=== PATIENT | female | born 1950 | race Caucasian/White ===

== ENCOUNTER 2022-06-21 13:49 | Outpatient (CLI) | payer MEDICARE ==
--- NOTE | 2022-06-23 11:29 | Mammography Report ---
BILATERAL DIGITAL SCREENING MAMMOGRAM 3D/2D WITH AUGMENTATION: 06/21/2022 CLINICAL: Routine screening. Comparison is made to exam dated: 03/01/2020 mammogram - [facility]. Both breasts are heterogeneously dense, which may obscure small masses (category c / 51-75% glandular tissue). There is an asymmetry in the left breast posterior depth medial region seen on the craniocaudal view only. No other significant masses, calcifications, or other findings are seen in either breast. Implants are present. Densities around the implant on the right and involving lymph nodes, likely ext racapsular silicone material. IMPRESSION: INCOMPLETE: NEEDS ADDITIONAL IMAGING EVALUATION The asymmetry in the left breast is indeterminate. Additional views with possible ultrasound are rec ommended. Based on the Tyrer Cuzick model (a risk assessment model) the patients lifetime risk is 5.4% and her 10 year risk is 3.7%. According to the ACR, ACS, and NCCN guidelines, an annual breast MRI exam hannah g with mammogram is recommended if the patients lifetime risk is 20% or greater. This exam was interpreted at Station ID: [id number]. NOTE: For mammograms, a report in lay terms will be sent to the patient. Approximately 15% of breast malignancies will not be visualized mammographically. In the management of a palpable breast mass, a negative mammogram must not discourage biopsy of a clinically suspicious lesion. Electronically Signed By: Alfonso Gimenez M.D. lc/:06/23/2022 10:54:02 ACR BI-RADS Category 0: Incomplete 3340F PARENCHYMAL PATTERN: (D) - The breast(s) demonstrate(s) heterogeneously dense fibroglandular myesha hammond. BI-RADS CATEGORY: (0) - 0 Mammo and [place] [id number] Immediate follow-up LATERALITY: (B)
== END 2022-06-21 13:50 | disposition home or self-care (01) ==
LOC: DI 13:49
PROVIDERS: ATTEND Nurse Practitioner Family
DX: Z12.31 Encounter for screening mammogram for malignant neoplasm of breast (principal); R92.8 Other abnormal and inconclusive findings on diagnostic imaging of breast

== ENCOUNTER 2022-07-24 12:21 | Outpatient (CLI) | payer MEDICARE, MEDICAID ==
--- NOTE | 2022-07-25 10:37 | Mammography Report ---
UNILATERAL LEFT DIGITAL DIAGNOSTIC MAMMOGRAM 3D/2D WITH AUGMENTATION: 07/24/2022 CLINICAL: Patient returns today to evaluate an asymmetry in the left breast. Comparison is made to exams dated: 06/21/2022 mammogram - [facility] and 03/01/2020 mammogram - [facility]. The left breast is heterogeneously dense, which may obscure small masses (category c / 51-75% glandul ar tissue). There is an asymmetry in the left breast posterior depth medial region seen on the craniocaudal view only. This is not seen in additional views. Left breast implant. No other significant masses or calcifications are seen in the breast. IMPRESSION: BENIGN There is no mammographic evidence of malignancy. The asymmetry in the left breast is consistent with fibroglandular tissue and is benign. A 1 year screening mammogram is recommended. Based on the Tyrer Cuzick model (a risk assessment model) the patients lifetime risk is 5.4% and her 10 year risk is 3.7%. According to the ACR, ACS, and NCCN guidelines, an annual breast MRI exam hannah g with mammogram is recommended if the patients lifetime risk is 20% or greater. This exam was interpreted at Station ID: [id number]. NOTE: For mammograms, a report in lay terms will be sent to the patient. Approximately 15% of breast malignancies will not be visualized mammographically. In the management of a palpable breast mass, a negative mammogram must not discourage biopsy of a clinically suspicious lesion. Electronically Signed By: Sloan Lawton M.D. slc/:07/24/2022 13:00:43 ACR BI-RADS Category 2: Benign Finding(s) 3342F PARENCHYMAL PATTERN: (D) - The breast(s) demonstrate(s) heterogeneously dense fibroglandular myesha hammond. BI-RADS CATEGORY: (2) - 2 Mammogram [id number] 1 year screening LATERALITY: (B)
== END 2022-07-24 12:22 | disposition home or self-care (01) ==
LOC: DI 12:21
PROVIDERS: ATTEND Nurse Practitioner Family
DX: R92.8 Other abnormal and inconclusive findings on diagnostic imaging of breast (principal); Z98.82 Breast implant status

== ENCOUNTER 2023-10-17 14:07 | Outpatient (CLI) | payer MEDICARE, MEDICAID ==
--- NOTE | 2023-10-18 14:33 | Mammography Report ---
BILATERAL DIGITAL SCREENING MAMMOGRAM 3D/2D WITH AUGMENTATION: 10/17/2023 CLINICAL: Routine screening. Comparison is made to exams dated: 07/24/2022 mammogram - [facility], 03/01/2020 penine mogram - [facility], and 06/21/2022 mammogram - [facility]. The breasts are heterogeneously dense, which may obscure small masses (category c / 51-75% glandular tissue). Bilateral breast implants are stable and intact. No significant masses, calcifications, or other findings are seen in either breast. There has been no significant interval change. IMPRESSION: BENIGN There is no mammographic evidence of malignancy. A 1 year screening mammogram is recommended. Based on the Tyrer Cuzick model (a risk assessment model) the patient's lifetime risk is 5.1% and her 10 year risk is 3.8%. According to the ACR, ACS, and NCCN guidelines, an annual breast MRI exam hannah g with mammogram is recommended if the patient's lifetime risk is 20% or greater. This exam was interpreted at Station ID: [id number]. NOTE: For mammograms, a report in lay terms will be sent to the patient. Approximately 15% of breast malignancies will not be visualized mammographically. In the management of a palpable breast mass, a negative mammogram must not discourage biopsy of a clinically suspicious lesion. Electronically Signed By: Eugenia Beck M.D., Ph.D. eb/penrad:10/18/2023 08:48:04 ACR BI-RADS Category 2: Benign 3342F PARENCHYMAL PATTERN: (D) - The breast(s) demonstrate(s) heterogeneously dense fibroglandular pargris hammond. BI-RADS CATEGORY: (2) - 2 RECOMMENDATION: (ANNUAL) - Recommend routine annual screening mammography. [id number] 1 year screening LATERALITY: (B)
== END 2023-10-17 14:08 | disposition home or self-care (01) ==
LOC: DI 14:07
DX: Z12.31 Encounter for screening mammogram for malignant neoplasm of breast (principal); Z98.82 Breast implant status